=== PATIENT | male | born 1965 | race Two or more races ===

== ENCOUNTER 2025-02-28 11:48 | Inpatient (IN) | payer OTHER ==
[~2025-02-28] VITALS: Ht 162.6 cm; Wt 112.3 kg
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
[2025-02-28 12:30] VITALS: PULSE 87; RESP 19; O2SAT 97
--- NOTE | 2025-02-28 12:44 | DVH ---
CHEST RADIOGRAPH Indication: sob Technique: Single frontal view of the chest was obtained COMPARISON: None FINDINGS: Lines and Tubes: None Lungs: Clear Pleura: No effusion. No pneumothorax. Cardiomediastinal contours: Unremarkable Bones: Unremarkable IMPRESSION: No acute disease.
[2025-02-28 12:59] LABS: Hematocrit 51.1 % (41.0-53.0); Hemoglobin 17.2 g/dL (13.5-17.5); Mean Corpuscular Hemoglobin 30.5 pg (28.0-32.0); Mean Corpuscular Volume 90.6 fL (80.0-100.0); Nucleated Red Blood Cells % 0.2 %
[2025-02-28 13:09] LABS: Chloride 102 mmol/L (98-107); Potassium 3.9 mmol/L (3.5-5.1); Sodium 140 mmol/L (136-145)
[2025-02-28 13:10] LABS: Anion Gap 7 (5-15); Carbon Dioxide 31 mmol/L (20-31)
[2025-02-28 13:11] LABS: Calcium 9.9 mg/dL (8.7-10.4)
[2025-02-28 13:15] LABS: BUN/Creatinine Ratio 16.9 (10.0-20.0); Blood Urea Nitrogen 12 mg/dL (9-23); Glucose 89 mg/dL (74-106)
[2025-02-28] MEDS: ALBUTEROL SULF 2.5 MG/0.5ML(0.5%) NEB SOLN NEB ONE (13:19)
[2025-02-28] MEDS: IPRATROPIUM BROM 0.5 MG/2.5ML INH SOL NEB ONE (13:19)
[2025-02-28 19:30] VITALS: PULSE 72; RESP 13; O2SAT 94
[2025-02-28 20:14] LABS: Urine Protein, UAD Negative (Negative)
[2025-02-28] MEDS ORDERED: NITROGLYCERIN 0.4 MG SL TAB SL PRN (23:45)
[2025-02-28] MEDS ORDERED: MORPHINE SULFATE INJ 2 MG/ml SYRG IV PRN (23:45)
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
[2025-03-01] VITALS (16 sets, daily range): BP systolic 90–151; BP diastolic 56–98; PULSE 51–86; RESP 15–20; TEMP 97.6–98.4; O2SAT 88–98
[2025-03-01 00:09] LABS: Alanine Aminotransferase 27.0 U/L (7-40); Albumin 4.6 g/dL (3.2-4.8); Alkaline Phosphatase 95.0 U/L (46-116); Bilirubin, Direct 0.3 mg/dL (<0.3); Bilirubin, Total 1.1 mg/dL (0.2-1.0); Magnesium 2.1 mg/dL (1.6-2.6); Total Protein 7.3 g/dL (5.7-8.2)
[2025-03-01 00:09] LABS: Base Excess 5.5 mmol/L (-2.0-3.0)
[2025-03-01] MEDS: ATORVASTATIN 20 MG TAB PO ONE (01:52)
[2025-03-01] MEDS: PANTOPRAZOLE 40 MG TAB PO ONE (01:54)
[2025-03-01] MEDS: methylPREDNISolone SOD SUCC 125 MG/2 ML VL IV ONE (02:45)
[2025-03-01] MEDS: ALBUTEROL SULF 2.5 MG/0.5ML(0.5%) NEB SOLN NEB ONE (03:05)
[2025-03-01] MEDS: IPRATROPIUM BROM 0.5 MG/2.5ML INH SOL NEB ONE (03:05)
[2025-03-01] MEDS: IPRATROPIUM BROM 0.5 MG/2.5ML INH SOL ONE (03:06)
[2025-03-01] MEDS: ALBUTEROL SULF 2.5 MG/0.5ML(0.5%) NEB SOLN ONE (03:06)
[2025-03-01 03:58] LABS: Base Excess 1.9 mmol/L (-2.0-3.0)
[2025-03-01] MEDS: BUDESONIDE (INHALATION) 0.5 MG/2 ML NEB NEB ONE (04:25)
[2025-03-01] MEDS: SODIUM CHLOR 0.9% PF (SALINE LOCK) 10ML VIAL/SYR IV SCH (06:27)
[2025-03-01] MEDS: ALBUTEROL SULF 2.5 MG/0.5ML(0.5%) NEB SOLN NEB SCH (07:30)
[2025-03-01] MEDS: IPRATROPIUM BROM 0.5 MG/2.5ML INH SOL NEB SCH (07:30)
--- NOTE | 2025-03-01 08:57 | DVH ---
US BiLat Lower DVT HISTORY: Bilateral leg swelling COMPARISON: None TECHNIQUE: Duplex doppler evaluation of the deep venous system of the lower extremity from the common femoral veins, superficial femoral vein, great saphenous vein, deep femoral vein, popliteal vein, an d calf veins, including color Doppler and spectral/pulsed waveform analysis, was performed. FINDINGS: Right: - Common femoral vein: Compressible - Deep femoral vein: Compressible - Femoral vein: Compressible - Popliteal vein: Compressible - Posterior tibial vein: Waveforms present - Other: Nothing Left: - Common femoral vein: Compressible - Deep femoral vein: Compressible - Femoral vein: Compressible - Popliteal vein: Compressible - Posterior tibial vein: Waveforms present - Other: Nothing IMPRESSION: No right or left lower extremity deep venous thrombosis.
[2025-03-01 09:33] LABS: Hematocrit 52.7 % (41.0-53.0); Hemoglobin 17.4 g/dL (13.5-17.5); Mean Corpuscular Hemoglobin 30.0 pg (28.0-32.0); Mean Corpuscular Volume 91.0 fL (80.0-100.0); Nucleated Red Blood Cells % 0.1 %
[2025-03-01] MEDS: BUDESONIDE (INHALATION) 0.5 MG/2 ML NEB NEB SCH (09:35)
[2025-03-01 09:50] LABS: Cholesterol 184 mg/dL (< 200)
[2025-03-01 09:51] LABS: Alanine Aminotransferase 26 U/L (7-40); Albumin 4.5 g/dL (3.2-4.8); Alkaline Phosphatase 83 U/L (46-116); Anion Gap 6 (5-15); BUN/Creatinine Ratio 17.4 (10.0-20.0); Blood Urea Nitrogen 12 mg/dL (9-23); Calcium 9.8 mg/dL (8.7-10.4); Chloride 100 mmol/L (98-107); Magnesium 2.1 mg/dL (1.6-2.6); Potassium 4.0 mmol/L (3.5-5.1); Sodium 138 mmol/L (136-145); Total Protein 7.1 g/dL (5.7-8.2)
[2025-03-01 09:53] LABS: HDL Cholesterol 39 mg/dL (40-59); Triglycerides 228 mg/dL (< 150)
[2025-03-01 09:56] LABS: Bilirubin, Total 1.3 mg/dL (0.2-1.0); Carbon Dioxide 32 mmol/L (20-31); Glucose 134 mg/dL (74-106)
[2025-03-01] MEDS: methylPREDNISolone SOD SUCC 125 MG/2 ML VL IV SCH (11:57)
[2025-03-01] MEDS: ENOXAPARIN SOD 40 MG/0.4 ML SYRINGE SC SCH (11:57)
[2025-03-01 14:09] LABS: Base Excess 0.6 mmol/L (-2.0-3.0)
[2025-03-01] MEDS: ERGOCALCIFEROL 50,000 UNIT(1.25MG) CAP PO SCH (15:16)
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
--- NOTE | 2025-03-01 18:21 | DVHSR ---
APPROVED REPORT EXAM: Two-dimensional and M-mode echocardiogram with Doppler and color Doppler. Blood Pressure: 90/63 mmHg INDICATION Chest Pain RISK FACTORS Height: 5'4", Weight: 244 DIMENSIONS LVDd4.9 (3.8-5.7cm)LA (2D)4.5 (1.9-4.0cm)Aortic Root2.5 (2.0-3.7cm) LVDs3.1 (2.5-4.0cm)LA (MM) (1.9-4.0cm)Aortic Cusp Exc1.5 (1.5-2.0cm) EF (%) 65.0 (55-70%)Rt. Atrium4.5 (1.9-4.0cm)Asc. Aorta3.2 cm IVSd1.5 (0.7-1.1cm)RV (D) (1.8-2.4cm) PWd0.9 (0.7-1.1cm) Mitral Valve MitralMitral Stenosis E wave0.70m/sMV Mean GR.mmHg A wave0.88m/sMV Peak GR.mmHg E/A ratio0.82D MVAcm2 DECEL [id number] 1/2 Timems Aortic Valve Aortic ValveAortic Stenosis V11.24m/Kandy Mean GR.10mmHg V22.38m/Kandy Peak GR.23mmHg LVOT Diameter2.0 (1.8-2.4cm)Doppler AVA1.64cm2 Pulmonic Valve V21.25m/s Other Information Quality : Technically LimitedRhythm : Technically limited study due to body habitus. Conclusion LVEF is normal at 60- 65%. Mild left ventricular hypertrophy. Mild diastolic dysfunction Right ventricle size and function normal Mild left and right atrial dilation Mild aortic stenosis
[2025-03-01] MEDS: ATORVASTATIN 20 MG TAB PO SCH (21:03)
[2025-03-02] VITALS (13 sets, daily range): BP systolic 92–130; BP diastolic 57–85; PULSE 57–96; RESP 18–20; TEMP 97.5–98.3; O2SAT 87–98
[2025-03-02] MEDS: PANTOPRAZOLE 40 MG TAB PO SCH (06:56)
[2025-03-02 07:33] LABS: Hematocrit 53.1 % (41.0-53.0); Hemoglobin 17.9 g/dL (13.5-17.5); Mean Corpuscular Hemoglobin 30.7 pg (28.0-32.0); Mean Corpuscular Volume 91.1 fL (80.0-100.0); Nucleated Red Blood Cells % 0.1 %
[2025-03-02 07:47] LABS: Calcium 10.4 mg/dL (8.7-10.4); Chloride 98 mmol/L (98-107); Potassium 4.5 mmol/L (3.5-5.1); Sodium 138 mmol/L (136-145)
[2025-03-02 07:48] LABS: Anion Gap 8 (5-15)
[2025-03-02 07:53] LABS: BUN/Creatinine Ratio 19.1 (10.0-20.0); Blood Urea Nitrogen 13 mg/dL (9-23)
[2025-03-02 07:57] LABS: Carbon Dioxide 32 mmol/L (20-31); Glucose 140 mg/dL (74-106)
[2025-03-02 12:58] LABS: Base Excess 1.5 mmol/L (-2.0-3.0)
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
[2025-03-03] VITALS (11 sets, daily range): BP systolic 110–135; BP diastolic 64–86; PULSE 54–86; RESP 17–18; TEMP 97.5–98.2; O2SAT 92–98
[2025-03-03 07:46] LABS: Hematocrit 52.7 % (41.0-53.0); Hemoglobin 17.7 g/dL (13.5-17.5); Mean Corpuscular Hemoglobin 30.5 pg (28.0-32.0); Mean Corpuscular Volume 91.0 fL (80.0-100.0); Nucleated Red Blood Cells % 0.0 %
[2025-03-03 08:07] LABS: Anion Gap 9 (5-15); Carbon Dioxide 31 mmol/L (20-31); Chloride 99 mmol/L (98-107); Potassium 4.0 mmol/L (3.5-5.1); Sodium 139 mmol/L (136-145)
[2025-03-03 08:08] LABS: Calcium 10.4 mg/dL (8.7-10.4)
[2025-03-03 08:13] LABS: BUN/Creatinine Ratio 21.5 (10.0-20.0); Blood Urea Nitrogen 14 mg/dL (9-23)
[2025-03-03 08:14] LABS: Glucose 130 mg/dL (74-106)
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
== END 2025-03-03 18:05 | disposition home or self-care (01) | DRG 133 ==
LOC: ER 11:48 → OVERFLOW 23:45 → TELE-WESTW 03-01 03:32
PROVIDERS: ADMIT Student in an Organized Health Care Education/Training Program; ATTEND Emergency Medicine
DX: J96.02 Acute respiratory failure with hypercapnia (principal); D69.6 Thrombocytopenia, unspecified; J38.4 Edema of larynx; J96.01 Acute respiratory failure with hypoxia; Z68.41 Body mass index [BMI] 40.0-44.9, adult; E66.01 Morbid (severe) obesity due to excess calories; E11.9 Type 2 diabetes mellitus without complications; I10 Essential (primary) hypertension; G47.33 Obstructive sleep apnea (adult) (pediatric); E78.5 Hyperlipidemia, unspecified; T59.811A Toxic effect of smoke, accidental (unintentional), initial encounter; Z87.891 Personal history of nicotine dependence; X08.8XXA Exposure to other specified smoke, fire and flames, initial encounter; Y92.89 Other specified places as the place of occurrence of the external cause
CPT/HCPCS: 36415; 36600; 71045; 80048; 80053; 80061; 80076; 81001; 82306; 82607; 82746; 82805; 83036; 83735; 83880; 84443; 84484; 85025; 93306; 93970; 94640; 99291; G0378